=== PATIENT | female | born 1960 | race African-American/Black ===

== ENCOUNTER 2021-01-19 13:21 | Emergency (ER) | payer OTHER ==
[~2021-01-19] VITALS: Ht 165.1 cm; Wt 100.0 kg
[2021-01-19 13:28] VITALS: BP 153/82
[2021-01-19 14:43] LABS: CLARITY URINE CLOUDY (CLEAR); COLOR URINE YELLOW (YELLOW); KETONES URINE NEGATIVE (NEGATIVE); LEUKOCYTE ESTERASE URINE TRACE (NEGATIVE); NITRITE URINE NEGATIVE (NEGATIVE); OCCULT BLOOD URINE NEGATIVE (NEGATIVE); PH URINE 5.5 (4.5-8.0); PROTEIN URINE 1+ (NEGATIVE); SPECIFIC GRAVITY URINE 1.021 (1.005-1.030); UROBILINOGEN URINE 0.2 E.U./dL (0.2-1.0)
[2021-01-19] MEDS ORDERED: NITR-87 MT (15:44)
[2021-01-19] MEDS ORDERED: METRONIDAZOLE 250MG TABLET PO ONE (15:45)
[2021-01-19] MEDS ORDERED: NITROFURANTOIN 100MG M/M CAPSULE PO ONE (15:45)
== END 2021-01-19 16:40 | disposition home or self-care (01) ==
LOC: ER 13:21
DX: N30.00 Acute cystitis without hematuria (principal); A59.9 Trichomoniasis, unspecified
CPT/HCPCS: 81003; 87077; 87186; 99283